=== PATIENT | female | born 1990 | race Caucasian/White ===

== ENCOUNTER 2017-08-25 15:15 | Emergency (ER) | payer OTHER ==
[~2017-08-25] VITALS: Ht 165.1 cm; Wt 65.0 kg
[~2017-08-25 15:15] MED LIST: ALPR-138 PO; FEXO180 PO; LEXA20TA PO; NORGTAB PO; PROM1SUP7 RECTAL; PROM25TA5 PO; PROT40TA PO; REGL10TA5 PO
[2017-08-25 15:17] VITALS: BP 136/89; PULSE 89; RESP 12; TEMP 98.2; O2SAT 100
--- NOTE | 2017-08-25 15:30 | PD ---
HPI Chief Complaint: Exposure to Blood/Body Fluids Time Seen by Provider: 15:30 Travel History International Travel<30 days: No Contact w/Intl Traveler<30days: No Traveled to known affect area: No History of Present Illness HPI 26-year-old female employee of [employer] presents the emergency department with workplace exposure to bodily fluids. Patient was suctioning a trach, when large piece of phlegm landed in her left eye. The area was flushed thoroughly. Patient is here for evaluation for post exposure prophylaxis. States no trouble with vision or other symptoms. She has no known drug allergies. PFSH Past Medical History Arthritis: No Asthma: No Autoimmune Disease: No Blood Disorders: No Anxiety: Yes Depression: Yes Heart Rhythm Problems: No Cancer: No Cardiovascular Problems: No High Cholesterol: No Chemotherapy: No Chest Pain: No Congestive Heart Failure: No COPD: No Cerebrovascular Accident: No Diabetes: No Diminished Hearing: No Endocrine: No Gastrointestinal Disorders: Yes (CHRONIC GI ISSUES;; ACID REFLUX, DIARRHEA, ) GERD: No Glaucoma: No Genitourinary: No Headaches: No Hepatitis: No Hiatal Hernia: No Heparin Induced Thrombocytopen: No Hypertension: No Immune Disorder: No Implanted Vascular Access Dvce: No Kidney Stones: No Musculoskeletal: No Neurologic: No Psychiatric: Yes (DEPRESSION & ANXIETY ) Reproductive: No Respiratory: No Immunizations Current: Yes Migraines: No Myocardial Infarction: No Radiation Therapy: No Renal Failure: No Seizures: No Sickle Cell Disease: No Sleep Apnea: No Thyroid Disease: No Ulcer: No ?: Not LMP: 08/24/17 : 0 Past Surgical History Abdominal Surgery: Yes (APPENDECTOMY 05/19/08) AICD: No Appendectomy: Yes Arteriovenous Shunt: No Body Medical Devices: NONE Cardiac Surgery: No Cholecystectomy: No Ear Surgery: No Endocrine Surgery: No Eye Surgery: No Genitourinary Surgery: No Gynecologic Surgery: No Insulin Pump: No Joint Replacement: No Neurologic Surgery: No Oral Surgery: Yes (WISDOM TEETH EXTRACTED; TONSILLECTOMY ) Pacemaker: No Thoracic Surgery: No Tonsillectomy: Yes Other Surgery: Yes Social History Alcohol Use: No Tobacco Use: No Substance Use: No Allergies-Medications (Allergen,Severity, Reaction): Coded Allergies: No Known Allergies (Verified Adverse Reaction, Unknown, 08/25/17) Reported Meds & Prescriptions Reported Meds & Active Scripts Active Reglan (Metoclopramide HCl) 10 Mg Tab 10 Mg PO TID PRN Phenergan Supp (Promethazine HCl) 25 Mg Supp 25 Mg RECTAL Q6H PRN Phenergan (Promethazine HCl) 25 Mg Tab 25 Mg PO Q6H PRN Reported Lidya Allergy (Fexofenadine Hydrochloride) 180 Mg Tab 180 Mg PO DAILY PRN Tri-Linyah 1 Tab PO DAILY Protonix (Pantoprazole Sodium) 40 Mg Tab 40 Mg PO DAILY Lexapro (Escitalopram Oxalate) 20 Mg Tab 20 Mg PO DAILY Xanax (Alprazolam) 0.25 Mg Tab 1 Tab PO TIDPRN Review of Systems Except as stated in HPI: all other systems reviewed are Neg General / Constitutional: No: Fever Eyes: No: Visual changes HENT: No: Headaches Cardiovascular: No: Chest Pain or Discomfort Respiratory: No: Shortness of Breath Gastrointestinal: No: Abdominal Pain Genitourinary: No: Dysuria Musculoskeletal: No: Pain Skin: No Rash Neurologic: No: Weakness Psychiatric: No: Depression Endocrine: No: Polydipsia Hematologic/Lymphatic: No: Easy Bruising Physical Exam Narrative GENERAL: Patient is in no acute distress. SKIN: Warm and dry. Normal turgor. HEAD: Atraumatic. Normocephalic. EYES: Pupils equal and round. No scleral icterus. No injection or drainage. No significant findings noted. ENT: No nasal bleeding or discharge. Mucous membranes pink and moist. Pharynx clear. Airway is patent. NECK: Trachea midline. Supple nontender CARDIOVASCULAR: Regular rate and rhythm. RESPIRATORY: No accessory muscle use. Clear to auscultation. Breath sounds equal bilaterally. MUSCULOSKELETAL: Extremities without clubbing, cyanosis, or edema. No obvious deformities. NEUROLOGICAL: Awake and alert. No obvious cranial nerve deficits. Motor grossly within normal limits. Five out of 5 muscle strength in the arms and legs. Normal speech. PSYCHIATRIC: Appropriate mood and affect; insight and judgment normal. Data Data Last Documented VS Vital Signs Date Time Temp Pulse Resp B/P (MAP) Pulse Ox O2 Delivery O2 Flow Rate FiO2 08/25/17 15:17 98.2 89 12 136/89 (105) 100 MDM Medical Decision Making Medical Screen Exam Complete: Yes Emergency Medical Condition: Yes Differential Diagnosis Workplace injury. Body fluid exposure. Evaluation for PEP. Narrative Course Patient is medically stable at time of exam. Labs are drawn for baseline for post exposure kit. PEP is not recommended for this patient based on her history and physical. Worker's Comp. forms are completed. Patient able to return immediately to work. Patient should follow with employee med for final clearance. Diagnosis Primary Impression: Employee exposure to body fluids Referrals: Employ Med Patient Instructions: General Instructions, Postexposure Prophylaxis (ED) Additional Instructions: Labs are drawn for baseline for post exposure kit. PEP is not recommended for this patient based on her history and physical. Worker's Comp. forms are completed. Patient able to return immediately to work. Patient should follow with employee med for final clearance. Med/Other Pt SpecificInfo: No Meds Exist/No RX given Disposition: DISCHARGE HOME Condition: Stable Gigi Hernandez Aug 25, 2017 15:30
[2017-08-25] MEDS ORDERED: BETH10TA2 PO (15:57)
[2017-08-25] MEDS ORDERED: ESCI20TA PO (15:57)
[2017-08-25] MEDS ORDERED: ALPR0.25 PO (15:57)
[2017-08-25] MEDS ORDERED: NORGTAB PO (15:57)
== END 2017-08-25 16:21 | disposition home or self-care (01) ==
LOC: NEPD 15:15
DX: T15.92XA Foreign body on external eye, part unspecified, left eye, initial encounter (principal); X58.XXXA Exposure to other specified factors, initial encounter; Y93.F9 Activity, other caregiving; Y92.239 Unspecified place in hospital as the place of occurrence of the external cause; Y99.0 Civilian activity done for income or pay; Z77.21 Contact with and (suspected) exposure to potentially hazardous body fluids; F32.9 Major depressive disorder, single episode, unspecified; F41.9 Anxiety disorder, unspecified; K21.9 Gastro-esophageal reflux disease without esophagitis
CPT/HCPCS: 99282